=== PATIENT | female | born 1970 | race Caucasian/White ===

== ENCOUNTER 2025-01-11 08:32 | Day surgery (SDC) | payer OTHER, SELFPAY ==
--- OUTSIDE RECORDS SUMMARY | 2025-01-11 08:49 | XMS_ITS | Clinical Summary ---
Author Organization [facility] Address [address] [place] [address] Care Team Providers Care Lbd Teacher Name Role Phone Keesha Velasco NP Primary Care Provider [phone] Allergies Active Allergy Reactions Criticality Noted Date Comments Sulfamethoxazole Stomach upset,Headache,Rash Medium Medications multivitamin (MULTIPLE VITAMINS ORAL) daily prn 02/09/20 10 Active valACYclovir (VALTREX) 1 gram tablet Take 1 tab 2 times a day as needed 02/29/20 20 Active mesalamine (CANASA) 1,000 mg suppositoryIndic ations:Ulcerativ e Proctitis Insert 1 suppository (1,000 mg total) into the rectum nightly 30 suppository 01/05/20 21 Active Additional Information Patient not taking.Reported on 04/06/2024 PNV with rmnrzoi-rptn-AM 27 mg iron- 1 mg tabletIndication s:Ulcerative pancolitis without complication (HCC) Take 1 tablet by mouth daily 90 tablet 3 01/05/20 21 Active sulfaSALAzine (AZULFIDINE) 500 mg tablet Take 3 tablets (1,500 mg total) by mouth 2 (two) times a day 180 tablet 5 02/20/20 23 Active Additional Information Patient not taking.Reported on 04/06/2024 Active Problems Problem Noted Date Diagnosed Date Healthcare maintenance 04/06/2024 Overview (04/06/2024): Immunizations: Influenza annual Pneumococcus s/p PCV 13 and PVX x 1 not on immunosuppression Zoster s/p shingrix HBV not on immunosuppression Covid vaccinated Cervical cancer screening: routine follow up with cigarette making examiner Skin cancer screening: not on immunosuppression Bone health: DEXA: at diagnosis. Check vitamin D CRC screening: q 2-3 years Osteopenia of multiple sites 02/20/2023 Assessment & Plan (04/06/2024 2:15 PM ASSOCIATE JUSTICE): She follows with bone health for this. Chronic fatigue 07/07/2020 Assessment & Plan (07/07/2020 6:33 PM ASSOCIATE JUSTICE): The patient complains of ongoing fatigue and worries if this is related to malabsorption. We will recheck a thyroid and B12 level Ulcerative pancolitis without complication 04/19 Overview (04/06/2024): Year of diagnosis: 1998. Year symptoms began: 1998. Distribution: Extensive (E3). Extraintestinal manifestations: none. Complications: none. Prior surgeries: none. Prior treatments: prednisone, mesalamine. Current treatment: sulfasalazine. TPMT: ?. 1998 developed bloody diarrhea shelter through . Ultimately diagnosed with UC Required several steroid courses Treated with Asacol then Apriso. off medication for many years. 2011 colonoscopy showed pancolonic involvement. 02/07/2017 Colonoscopy normal 12/29/20 Colonoscopy - mildly erythematous mucosa in the rectum without ulceration (Montanez 1; mildly nodular area in recto-sigmoid colon with hyperplastic characteristics (previously biopsied). On canasa following that. At clinic visit 12/2020, added lialda 1.2g, changed canasa to rowasa. Rowasa helped a lot Her Lialda dose was increased to 2.4g at her 12/2021 visit and she was advised that she could use topical mesalamine as needed. 01/17/2023 colonoscopy from was consistent with remission with an inflammatory polyp removed. Due to cost concerns, she was transitioned to sulfasalazine to similar benefit Assessment & Plan (04/06/2024 2:15 PM ASSOCIATE JUSTICE): She has ulcerative pancolitis and mucosal remission on sulfasalazine. I told her about the cost plus pharmacy that she may be able to get mesalamine cheaper. However she is doing fine on sulfasalazine so I do not think we need to make any changes right now. I will plan on repeating a colonoscopy next year. She should continue treatment with sulfasalazine or mesalamine indefinitely. Assessment & Plan (07/07/2020 6:31 PM ASSOCIATE JUSTICE): Prior to her recent antibiotics, the patient remained in clinical remission. We suspect the disruption in her armida has caused mild flare. As we would like to avoid steroids, we will offer her Canasa suppositories and a couple days of Xifaxan to see if this will help with the gassiness and bloating. The patient is advised that she does need a colonoscopy for surveillance every 1-2 years. We will try to get this scheduled as soon as possible Assessment & Plan (04/19/2019 4:50 PM ASSOCIATE JUSTICE): Given the patient's duration of disease, we would recommend that she have a surveillance colonoscopy as soon as possible. We will try to accommodate her request for colonoscopy before the end of the year but do not want her to push off the colonoscopy until late 2019 Plan 1. Patient needs surveillance colonoscopy 2. If he remains in deep remission on no medications, she may be able to stay off mesalamine 3. If findings of activity, patient tolerated Apriso Vitamin D deficiency 04/19/2019 Assessment & Plan (04/19/2019 4:50 PM ASSOCIATE JUSTICE): History of vitamin-D deficiency. Will check vitamin-D status today Need for 23-polyvalent pneumococcal polysacchari de vaccine 04/19/2019 Assessment & Plan (04/19/2019 4:51 PM ASSOCIATE JUSTICE): Given autoimmune condition recommend that she complete her pneumonia series Iron deficiency anemia due to chronic blood loss 04/19/2019 Assessment & Plan (07/07/2020 6:32 PM ASSOCIATE JUSTICE): Patient reports a past history of iron deficiency anemia and ongoing fatigue so we will check for iron stores and CBC. Assessment & Plan (04/19/2019 4:51 PM ASSOCIATE JUSTICE): Check for iron deficiency anemia Slow transit constipation 04/19/2019 Assessment & Plan (04/19/2019 4:52 PM ASSOCIATE JUSTICE): Patient may benefit from the laxative affects of mesalamine. At present she would like to avoid unnecessary medications and therefore is encouraged to try taking MiraLax, Metamucil/Benefiber, and drink more water Malignant neoplasm of upper-outer quadrant of fe male breast 09/26/2011 Immunizations Immunization Administration Dates Next Due Influenza, Quadrivalent, Kyara l Culture-based MDCK, Preservative Free, Antibiotic Free, Intramuscular 07/07/2020 Pneumococcal Conjugate PCV 13 01/16/2017 Pneumococcal Polysaccharide PPV23 04/16/2019 Surgical History Surgery Date Site/Laterality Comments MASTECTOMY, PARTIAL 08/01/2007 - 08/31/2007 Left BILATERAL SALPINGOOPHORECTOMY 06/02/2008 - 06/01/2009 LYMPH NODE DISSECTION 09/01/2007 - 09/30/2007 Left axillary Medical History Medical History Date Comments Breast cancer, left (HCC) 2007 s/p ch emoradiation, endocrine tx UC (ulcerative colitis) dx 1998 Family History Medical History Relation Name Comments Prostate cancer Father Family histo ry of malignant neoplasm of prostate - (Added by TW Conv) Colon cancer Father's Brother Crohn's disease Neg Hx Ulcerative colitis Neg Hx Relation Name Status Comments Father Father's Brother Social History Tobacco Use Types Packs/Day Years Used Date Smoking Tobacco: Never Smokeless Tobacco: Never Tobacco Cessation:Counseling Given: Not Answered AUDIT-C Answer Date Recorded Q1: How often do you have a drink containing alc ohol? Monthly or less 02/19/2023 Average Number of Drinks Not on file 023 Frequency of Binge Drinking Not on file 02/01 Personal Safety Answer Date Recorded Have you ever been in or are you currently in a harmful physical or emotional relationship or is someone making you feel afraid or unsafe? Denies 01/17/2023 Comments No Sex and Gender Information Value Date Recorded Sex Assigned at Not on file Legal Sex Female 3:29 AM ASSOCIATE JUSTICE Gender Identity Not on file Sexual Orientation Not on file Obstetrics History Last Filed Vital Signs Vital Sign Reading Time Taken Comments Blood Pressure 112/77 04/06/2024 8:48 AM ASSOCIATE JUSTICE Pulse 68 04/06/2024 8:48 AM ASSOCIATE JUSTICE Temperature 36.7 C (98 F) 04/06/2024 8:48 AM ASSOCIATE JUSTICE Respiratory Rate 21 01/17/2023 11:45 AM CDT Oxygen Saturation 100% 04/06/2024 8:48 AM ASSOCIATE JUSTICE Inhaled Oxygen Concentration - - Weight 60.3 kg (133 lb) 04/06/2024 8:48 AM ASSOCIATE JUSTICE Height 165.1 cm (5' 5) 04/06/2024 8:48 AM ASSOCIATE JUSTICE Body Mass Index 22.13 04/06/2024 8:48 AM ASSOCIATE JUSTICE Plan of Treatment Health Maintenance Due Date Last Done Comments Cervical Cancer Screening 1970 Depression Screening 1970 Hepatitis C Screening 1970 DTaP/Tdap/Td Vaccine (1 - Tdap) 1981 Hepatitis B Screening 1988 Regular Well Visit/Exam 18-64 1988 Covid-19 Vaccine ( season) 2024 06/04/2021, 10/13/2020 Influenza Vaccine (#1) 2025 , 04/23/2016, 06/20/2015 Breast Cancer Screening-Mammogram 02/12/2025 02/13/2024, 02/11/2023, 12/19/2021, Additional history exists Colon Cancer Screening-Colonoscopy 01/17/2033 01/17/2023, 12/29/2020, 02/07/2017 Pneumococcal vaccine <65 Aged Out 019, 01/25/2017, 01/16/2017 No longer eligible based on patient's age to complete this topic Zoster Vaccine Completed 12/18/2020, 07/12/2020 Procedures Procedure Name Priority Date/Time Associated Diagnosis Comments SCREENING MAMMOGRAM BILATERAL W TROY Schedule Routine, Read Routine (OP Routine) 02/13/2024 10:09 AM CDT Screening mammogram, encounter for COLONOSCOPY 01/17/2023 10:56 AM CDT from Last 3 Months or Most Recently Relevant to Health Maintenance Results * Screening Mammogram Bilateral W Troy (02/13/2024 10:09 AM CDT) Anatomical Region Laterality Modality Breast Bilateral Mammography Narrative 02/13/2024 2:40 PM CDT Mammogram Technique: Bilateral Digital Breast Tomosynthesis, Bilateral C-view 2D Screening mammogram. Views obtained: bilateral craniocaudal and bilateral mediolateral oblique. Computer Aided Detection was performed. Mammogram Findings: The present examination has been compared to prior imaging studies performed at [facility] on 02/11/2023, at [facility] on 10/20/2014, 11/02/2015, 11/07/2016, 12/11/2017, 12/14/2018 and 12/19/2021, and at [facility] on 12/20/2019 and 12/19/2020. The breasts are heterogeneously dense, which may obscure small masses. There is no suspicious abnormality in either breast. There are no significant changes from the prior study. Impression: There is no mammographic evidence of malignancy. Annual screening mammography is recommended. If supplemental screening is desired, breast MRI would be recommended in this patient with heterogeneously dense breasts. OVERALL FINAL ASSESSMENT: BI-RADS CATEGORY 1: Negative. Procedure Note Ana Pritchett MD - 02/13/2024 Mammogram Technique: Bilateral Digital Breast Tomosynthesis, Bilateral C-view 2D Screening mammogram. Views obtained: bilateral craniocaudal and bilateral mediolateral oblique. Computer Aided Detection was performed. Mammogram Findings: The present examination has been compared to prior imaging studies performed at [facility] on 02/11/2023, at [facility] on 10/20/2014, 11/02/2015, 11/07/2016, 12/11/2017, 12/14/2018and 12/19/2021, and at [facility] on12/20/2019 and 12/19/2020. The breasts are heterogeneously dense, which may obscure small masses. There is no suspicious abnormality in either breast. There are no significant changes from the prior study. Impression: There is no mammographic evidence of malignancy. Annual screening mammography is recommended. If supplemental screeningis desired, breast MRI would be recommended in this patient with heterogeneously dense breasts. OVERALL FINAL ASSESSMENT: BI-RADS CATEGORY 1: Negative. us Self Screening Mammogram IMG MAMMO PROCEDURES Fi nal Result * COLONOSCOPY (01/17/2023 10:56 AM CDT) Anatomical Region Laterality Modality Other Narrative Procedure Note Jessica Franklin MD - 01/17/2023 10:56 AM CDT ENDOSCOPY LAB Patient Name: Alexia Phillips Procedure Date: 01/17/2023 10:56 AM Date of : 1970 Admit Type: Outpatient Age: 52 Gender: Female Attending MD: Jessica Franklin M.D. Room: [facility] ENDOSCOPY ROOM 05 Note Status: Finalized Procedure: Colonoscopy Indications: High risk colon cancer surveillance: Ulcerative pancolitis of 8 (or more) years duration Providers: Jessica Franklin M.D. Referring MD: Keesha Velasco NP Medicines: Monitored Anesthesia Care Complications: No immediate complications. Estimated Blood Loss: Estimated blood loss: none. Procedure: Pre-Anesthesia Assessment: - The risks and benefits of the procedure and the sedation options and risks were discussed with the patient. All questions were answered and informed consent was obtained. - Pre-procedure physical examination revealed no contraindications to sedation. The benefits, risks and alternatives of theprocedure and sedation were discussed and informed consentwas obtained. All questions were answered. Please referto the signed informed consent document in the medical record. The scope was passed under direct vision.The [id number] was introduced through the anusand advanced to the cecum, identified by appendiceal orifice and ileocecal valve. The colonoscopy was performed without difficulty. The patient tolerated the procedure well. The quality of the bowel preparation was good. Bowel prep was administered using a split dose. Findings: The perianal and digital rectal examinations were normal. Pertinent negatives include no palpable rectal lesions. Normal mucosa was found in the entire colon. Contrast chromoscopywith methylene blue was performed using irrigation chromoendoscopytechnique. A 6 mm polyp was found in the cecum. The polyp was flat. The polypwas removed with a hot snare. Resection and retrieval were complete. To prevent bleeding post-intervention, one hemostatic clip wassuccessfully placed. There was no bleeding at the end of the procedure. No additional abnormalities were found on retroflexion. Impression: - Normal mucosa in the entire examined colon. Chromoscopy performed. - One 6 mm polyp in the cecum, removed with a hot snare. Resected and retrieved. Clip was placed. Recommendation: - Await pathology results. - Start SSA 3 tabs BID - Contact Information: During normal business hours - Please call theNurse Coordinator: [phone] After hours, evening, nights, weekends and holidays- Please call the hospital transit mixer operator at and ask for the GI fellow director of restaurant operations. Attending Participation: I personally performed the entire procedure. Electronically signed by Jessica Franklin M.D. Jessica Franklin M.D. 01/17/2023 11:32:33 AM Number of Addenda: 0 Note Initiated On: 01/17/2023 10:56 AM Jessica Franklin MD ENDOSCOPY PROCEDURE S Final Result from Last 3 Months or Most Recently Relevant to Health Maintenance [facility]PPO Address: [address] [address] [place] [address] [facility]/PPO Address: [address] [address] [place] [address] [facility] OPEN ACCESS Advance Directives For more information, please contact: [phone] * Full Code (Latest Code Status on File) Date Activated Date Inactivated Comments 01/17/2023 10:00 AM 01/17/2023 4:07 PM * Full Code Date Activated Date Inactivated Comments 12/29/2020 11:44 AM 12/29/2020 6:28 PM Care Teams Lbd Teacher Relationship Specialty Start Date End Date Keesha Velasco NP [address] [place] [address] [place], [place] [id number] PCP - General 12/14/18
[2025-01-11 08:59] VITALS: BP 110/73; PULSE 64; RESP 16; TEMP 37; O2SAT 100
[2025-01-11] MEDS: LACTATED RINGERS 1,000 ML 30 ML IV CONT ×2 (09:07→12:42)
[2025-01-11] MEDS: TRANEXAMIC ACID 1,000 MG/10 ML AMPUL 1000 MG IV PUSH (09:09)
--- NOTE | 2025-01-11 10:00 | WPDANESEPPF ---
Anes - Initial Pre Proc Eval Procedure: Operation Date: 01/11/25 10:30 Proposed Procedures p Bilateral Breast Augmentation - Alessandro Pierson MD Date/Time: 01/11/25 10:00 Surgeon: Alessandro Pierson MD Pre Op Diagnosis: Micromastia Patient Data Age: 54 Gender: F Height: 1.65 m Weight: 60.95 kg Last Vital Signs Temp 98.6 F 01/11/25 08:59 Pulse 64 01/11/25 08:59 Resp 16 01/11/25 08:59 BP 110/73 01/11/25 08:59 Pulse Ox 100 01/11/25 08:59 O2 Del Method Room Air 01/11/25 08:59 Allergies Allergy/AdvReac Type Severity Reaction Status Date / Time No Known Allergies Allergy Mild Verified 01/11/25 08:57 Home Medications ?Medication ?Instructions ?Recorded ?Confirmed ?Type No Home Medications 11/29/21 01/11/25 History Patient hx anesthesia problems: none Family hx anesthesia problems: none Results Review: All pre-operative results and documents have been reviewed as part of the pre-operative evaluation. [facility] Past Medical History Medical History (Updated 11/29/21 @ 10:30 by Eneida Gallo) History of deviated nasal septum Surgical History Surgical History (Updated 11/29/21 @ 09:57 by Eneida Gallo) History of lumpectomy Social History Social History (Updated 11/29/21 @ 09:57 by Eneida Gallo) Smoking status: Never smoker Alcohol intake: current Drinks per week: 2 Living arrangements: with family Spiritual care concerns: No Anes - Eval Final PreProcedure Day of Procedure 01/11/25 10:00 Heart: regular rate and rhythm Lungs: clear to auscultation Airway: Mallampati scale class II Neurological: alert and oriented Last oral intake: >/= 8 hours ASA classification: II Anesthetic plan: proceed Anesthesia type and monitoring: general Results Review: All pre-operative results and documents have been reviewed as part of the pre-operative evaluation. Informed Consent: The patient's anesthetic plan and its attendant risks and benefits were discussed with the patient/family/POA. Questions were solicited and answers provided to the satisfaction of the patient/family/POA.
--- NOTE | 2025-01-11 10:58 | WPDHPUPDATE1 ---
History and Physical Update Update Date/Time: 01/11/25 10:58 History and Physical has been reviewed, including an updated exam of the patient. There are NO changes in the patient's condition. Risks, benefits, and alternatives have been discussed and questions answered. Patient agrees to proceed with procedure.
--- NOTE | 2025-01-11 10:58 | W.PM.PROC2 ---
Procedure Note - Detailed Date of Procedure 01/11/25 Pre-op Diagnosis Micromastia Post-op Diagnosis Same Procedure Performed Bilateral augmentation mammaplasty Surgeon Alessandro Pierson MD Anesthesia General Findings Bilateral Ethel Sanchez SoftTouch 320cc Right: REF# [id number] SN [id number] Left: REF# [id number] SN [id number] Description of Procedure She is here today for bilateral breast augmentation. Previously and again today the risks, benefits, alternatives were discussed in extensive detail. I wanted her to be very realistic about the risks involved as well as expectations. We discussed aftercare and what to monitor for. Made sure answered all of her questions to her satisfaction today and consent was obtained. Marked in the preoperative holding area with their verification. The patient was taken to the operating room placed supine on the operating table. Anesthesia was provided by anesthesiology. A surgical time-out was taken. We cleansed the skin and 1% lidocaine and 0.25% Marcaine with epinephrine was used anesthetize as a field block. She was prepped and draped in a standard sterile fashion. Tegaderm nipple Puentes were placed. A 15 blade used to make an incision along the inframammary fold. Dissection was continued at 45 degree angle until the chest wall as identified. I elevated a subfascial pocket in the appropriate dimensions based on our preoperative planning for the implant. I then copiously irrigated with saline solution and verified a strict hemostasis. Next the use a triple antibiotic and Betadine containing solution to irrigate the pocket. I washed my gloves with the triple antibiotic and Betadine solution. We washed the implant immediately upon opening it with this solution and only opened it when we needed it. I used implant funnel and no-touch technique. The implant was introduced into the pocket using the funnel. Having verified positioning of the implant this was closed using 2-0 PDS followed by 3-0 Monocryl in a running subcuticular 4-0 Monocryl followed by tissue glue. Fluffs and surgical bra were placed. Patient was awoke and taken to PACU without difficulty. All instrument sponge counts were correct at the end of the case. Estimated Blood Loss 20 Drains No Packing No Pathology None sent Complications No immediate complications Condition Stable Disposition PACU
[2025-01-11] MEDS: LIDO 1%/EPINEPHRINE 1:100,000 20 ML VIAL 30 ML INFILTRATE (11:51)
[2025-01-11 12:17] VITALS: BP 137/78; PULSE 90; RESP 15; TEMP 36.2; O2SAT 98
[2025-01-11 12:30] VITALS: BP 135/81; PULSE 68; RESP 24; O2SAT 100
--- NOTE | 2025-01-11 12:39 | SUR.PHASEI ---
REPORT GIVEN TO VIOLA PARKS RN
--- NOTE | 2025-01-11 12:41 | WPDANESPN ---
Anes - Prog Note Post-Op Date/Time: 01/11/25 12:41 Cardiovascular status: normal Respiratory status: normal Airway patency: baseline Mental status: baseline Post-Op hydration status: normal Vital Signs: Last Vital Signs Temp 36.2 C L 01/11/25 12:17 Pulse 68 01/11/25 12:30 Resp 24 H 01/11/25 12:30 BP 135/81 01/11/25 12:30 Pulse Ox 100 01/11/25 12:30 O2 Del Method Simple Face Mask 01/11/25 12:30 O2 Flow Rate 6 01/11/25 12:30 Pain Score (VAS): 0 I/O: Intake & Output 01/10/25 01/11/25 01/11/25 23:59 07:59 15:59 Intake Total 0 Balance 0 Patient Feedback: Patient satisfied with anesthetic care.
[2025-01-11] MEDS: fentaNYL CITRATE INJ (*CRX) 100 MCG/2 ML VIAL 25 MCG IV PUSH (12:42)
[2025-01-11 12:45] VITALS: BP 126/80; PULSE 73; RESP 17; O2SAT 95
[2025-01-11 12:56] VITALS: BP 123/81; PULSE 64; RESP 16; O2SAT 98
[2025-01-11] MEDS: oxyCODONE HCL (*CRX) 5 MG TAB IR PO (13:13)
[2025-01-11 13:30] VITALS: BP 127/78; PULSE 61; RESP 18
== END 2025-01-11 13:42 | disposition home or self-care (01) ==
PROVIDERS: Visit Provider Surgery Plastic and Reconstructive Surgery
PROC: (CPT 19325; principal; 2025-01-11 10:30)
DX: Z41.1 Encounter for cosmetic surgery (principal); N64.82 Hypoplasia of breast
CPT/HCPCS: 19325